=== PATIENT | male | born 1995 | race Caucasian/White ===

== ENCOUNTER 2025-03-01 18:26 | Emergency (ER) | payer BC ==
[2025-03-01] MEDS: Diphtheria,Pertussis(Acell),Tetanus Vaccine 0.5 ML Syringe IM ONE (18:57)
== END 2025-03-01 19:41 | disposition home or self-care (01) ==
LOC: JP.ED 18:26
DX: S00.83XA Contusion of other part of head, initial encounter (principal); S60.410A Abrasion of right index finger, initial encounter; S70.312A Abrasion, left thigh, initial encounter; S80.211A Abrasion, right knee, initial encounter; Z23 Encounter for immunization; Z91.030 Bee allergy status; W01.198A Fall on same level from slipping, tripping and stumbling with subsequent striking against other object, initial encounter
CPT/HCPCS: 70450; 90471; 90715; 99283; A9270